=== PATIENT | male | born 1960 | race Two or more races ===

== ENCOUNTER 2018-06-18 20:31 | Emergency (ER) | payer OTHER ==
[2018-06-18 20:48] VITALS: BP 152/88; PULSE 70; TEMP 99.2; BMI 23.0
[2018-06-18] MEDS ORDERED: ACETAMINOPHEN 325 MG TABLET (FP) PO ONE (21:25)
--- NOTE | 2018-06-18 21:25 | PDOC ---
History of Present Illness - General Chief Complaint: Injury Stated Complaint: FOOT INJURY Time Seen by Provider: 06/18/18 21:06 History Source: Patient Exam Limitations: No Limitations - History of Present Illness Initial Comments: 06/18/18 22:42 Patient is a 57-year-old male with no past medical history who presents to emergency department today for right toe pain. Patient states he was at [place] when he was helping his out of the ocean he felt his toe plant in the sand and twist in the opposite direction. He states that he later walks on it at night with increasing pain. He presents for evaluation. Denies numbness and tingling to the extremity, weakness, fevers. Past History - Travel Traveled outside of the country in the last 30 days: No Close contact w/someone who was outside of country & ill: No - Past Medical History Allergies/Adverse Reactions: Allergies Allergy/AdvReac Type Severity Reaction Status Date / Time No Known Allergies Allergy Verified 06/18/18 20:48 Home Medications: Ambulatory Orders NK [No Known Home Medication] 06/18/18 COPD: No - Suicide/Smoking/Psychosocial Hx Smoking History: Never smoked Have you smoked in the past 12 months: No Information on smoking cessation initiated: No Hx Alcohol Use: No Drug/Substance Use Hx: No Substance Use Type: None Review of Systems - Review of Systems Able to Perform ROS?: Yes Comments:: 06/18/18 21:22 CONSTITUTIONAL: Absent: fever, chills, diaphoresis, generalized weakness, malaise, loss of appetite HEENT: Absent: rhinorrhea, nasal congestion, throat pain, throat swelling, difficulty swallowing, mouth swelling, ear pain, eye pain, visual Changes MUSCULOSKELETAL: Present: R foot pain. Absent: myalgia, arthralgia, joint swelling SKIN: Absent: rash, itching, pallor NEUROLOGIC: Absent: headache, focal weakness or paresthesias, dizziness, unsteady gait, seizure, mental status changes, bladder or bowel incontinence PSYCHIATRIC: Absent: anxiety, depression, suicidal or homicidal ideation, hallucinations. Is the patient limited Citizen Of [place] proficient: No *Physical Exam - Vital Signs Last Vital Signs Temp Pulse Resp BP Pulse Ox 99.2 F 70 18 152/88 100 06/18/18 20:44 06/18/18 20:44 06/18/18 20:44 06/18/18 20:44 06/18/18 20:44 - Physical Exam Comments: 06/18/18 21:22 GENERAL: Well developed, well nourished. Awake and alert. No acute distress. NECK: Supple. Full ROM. No JVD. Carotid pulses 2+ and symmetric, without bruits. No thyromegaly. No lymphadenopathy. MUSCULOSKELETAL TTP of the base of the 4th R toe. Unable to move the 4th toe. Normal range of motion at all other joints. No bony deformities or tenderness. No CVA tenderness. EXTREMITIES: No cyanosis. No clubbing. No edema. No calf tenderness. SKIN: Warm and dry. Normal capillary refill. No rashes. No jaundice. NEUROLOGICAL: Alert, awake, appropriate. Cranial nerves 2-12 intact. No deficits to light touch and temperature in face, upper extremities and lower extremities. No motor deficits in the in face, upper extremities and lower extremities. Normoreflexic in the upper and lower extremities. Normal speech. Toes are down- going bilaterally. Gait is normal without ataxia. Medical Decision Making - Medical Decision Making 06/18/18 22:30 Patient is a 57-year-old male with no past medical history who presents to emergency department today for right toe pain. -Exam: TTP of the base of the 4th toe. Pt unable to wiggle it -X-ray shows a dislocation of the 4th toe at the base. -Toe reduced at bedside with Dr. Winters. See procedure note below -Post reduction films taken with reduction -DC home. Podietry follow up given. Return precautions given. Pt understands all dc instructions and all questions were answered. Procedure note: Joint reduction procedure note: Right fourth toe at the base of the PIP. Pre-procedure neurovascular exam: Normal Digital block performed. 2 mL of 1% lidocaine used. Manual traction applied anteriorly and medially to reduce the right fourth toe. Post procedure film obtained with good reduction of the toe. Toe is now sitting within the joint socket. Post-procedure neurovascular exam: unchanged Possible fracture to the distal metatarsal bone. 4th and 5th toes lalita taped together for support. *DC/Admit/Observation/Transfer Diagnosis at time of Disposition: Dislocation of toe of right foot Qualifiers: Encounter type: initial encounter Qualified Code(s): S93.104A - Unspecified dislocation of right toe(s), initial encounter - Discharge Dispostion Disposition: HOME Condition at time of disposition: Stable Decision to Admit order: No - Referrals Referrals: Olvin Kumar MD [Primary Care Provider] - Tara Shah DPM [Staff Physician] - - Patient Instructions Printed Discharge Instructions: DI for Dislocated Toe Additional Instructions: You had a dislocated toe. It was reduced in the emergency department today Please keep the toes lalita taped together for support for the next 2 days. Please keep the foot elevated to help reduce swelling. You may ice the area for 20 minute intervals. Please follow up with podiatry in 2-3 days. Return to emergency department if you have increased pain in your toe, have numbness and tingling, cannot move your foot, have any changes in your symptoms. - Post Discharge Activity Forms/Work/School Notes: Back to Work
[2018-06-18] MEDS ORDERED: ACETAMINOPHEN 325 MG TABLET (FP) ONE (21:29)
--- NOTE | 2018-06-18 22:38 | PDOC ---
*Physical Exam - Vital Signs Last Vital Signs Temp Pulse Resp BP Pulse Ox 99.2 F 70 18 152/88 100 06/18/18 20:44 06/18/18 20:44 06/18/18 20:44 06/18/18 20:44 06/18/18 20:44 ED Treatment Course - Medications Given in the ED: ED Medications Discontinued Medications Generic Name Dose Route Start Last Admin Trade Name Robert PRN Reason Stop Dose Admin Acetaminophen 650 mg 06/18/18 21:25 06/18/18 21:29 Tylenol - PO 06/18/18 21:26 650 mg ONCE ONE Administration Medical Decision Making - Medical Decision Making 06/18/18 22:33 The patient was seen and evaluated in conjunction with midlevel provider under my direct supervision, ancillary studies were reviewed. I agree with the plan as outlined by RONAL Marmolejo. in summary 57 YOM with right 4th toe pain and swelling [place]. vitals wnl. pain controlled. XR right toe with dislocation at the MT/phalangeal with possible distal phalangeal fx? is tender over area, NVI, +swelling and mild ecchymosis over base. right digital toe block, manual reduction at bedside with improvement of alignment. post reduction XR right 4th toe with improved alignment, ?distal phalangeal fx, will lalita tape for immobilization, rest and ice, podiatry followup. pt made aware of impression and plan, OTC pain meds as needed. verbalized understanding, will DC in stable condition. *DC/Admit/Observation/Transfer Diagnosis at time of Disposition: Dislocation of toe of right foot Qualifiers: Encounter type: initial encounter Qualified Code(s): S93.104A - Unspecified dislocation of right toe(s), initial encounter - Discharge Dispostion Disposition: HOME Condition at time of disposition: Good - Referrals Referrals: Olvin Kumar MD [Primary Care Provider] - - Patient Instructions Printed Discharge Instructions: How to Prevent Falls, Dislocated Toe - Post Discharge Activity
== END 2018-06-18 22:45 | disposition home or self-care (01) ==
LOC: JERFT 20:31
PROC: 0SSPXZZ Reposition Right Toe Phalangeal Joint, External Approach (ICD-10-PCS; principal; 2018-06-18)
DX: S93.114A Dislocation of interphalangeal joint of right lesser toe(s), initial encounter (principal); X50.1XXA Overexertion from prolonged static or awkward postures, initial encounter; Y93.89 Activity, other specified; Y92.832 Beach as the place of occurrence of the external cause; Y99.8 Other external cause status
CPT/HCPCS: 73630-TC-RT-FY; 99281-25